=== PATIENT | female | born 1950 | race Caucasian/White ===

== ENCOUNTER 2016-08-05 04:30 | Emergency (ER) | payer MEDICARE ==
[2016-08-05 04:30] VITALS: BP 0/0
== END 2016-08-05 04:47 | disposition expired ==
LOC: ED 04:30
DX: I46.9 Cardiac arrest, cause unspecified (principal); R19.7 Diarrhea, unspecified; R10.9 Unspecified abdominal pain; N19 Unspecified kidney failure; E11.9 Type 2 diabetes mellitus without complications; R50.9 Fever, unspecified
CPT/HCPCS: J0171; J1815; J3490